=== PATIENT | male | born 1965 | race Caucasian/White ===

== ENCOUNTER 2016-08-06 11:07 | Emergency (ER) | END 2016-08-06 12:12 | disposition left against medical advice (07) | LOC: UCCORT 11:07 | DX: Z53.21 Procedure and treatment not carried out due to patient leaving prior to being seen by health care provider (principal) ==

== ENCOUNTER 2016-08-07 07:35 | Emergency (ER) | payer OTHER ==
[2016-08-07 07:48] VITALS: BP 141/82
--- NOTE | 2016-08-07 08:36 | UC ---
Skin Complaint HPI - HPI Summary HPI Summary: c/o redness and itching on R axilla area that started Tuesday. States just returned from [place] where he was sweating alot. no fevers. chills or body aches. no discharge, no abscess. +itchy more than anything else. + DM hx. last a1c was 7.5 6 mo ago and has upcoming appt. doesnt check blood sugars. - History of Current Complaint Chief Complaint: UCSkin Time Seen by Provider: 08/07/16 07:41 Stated Complaint: ARMPIT COMPLAINT - Allergy/Home Medications Allergies/Adverse Reactions: Allergies Allergy/AdvReac Type Severity Reaction Status Date / Time Erythromycin Allergy Rash Verified 08/07/16 07:42 Review of Systems Constitutional: Negative Skin: Rash Eyes: Negative ENT: Negative Respiratory: Negative Cardiovascular: Negative Gastrointestinal: Negative Genitourinary: Negative Motor: Negative Neurovascular: Negative Musculoskeletal: Negative Neurological: Negative Psychological: Negative All Other Systems Reviewed And Are Negative: Yes PMH/Surg Hx/FS Hx/Imm Hx Previously Healthy: Yes Endocrine History Of: Reports: Diabetes Cardiovascular History Of: Reports: Hypertension - Surgical History Surgical History: None - Family History Known Family History: Positive: Hypertension, Diabetes - Social History Alcohol Use: Occasionally Substance Use Type: None Smoking Status (MU): Never Smoked Tobacco Type: Cigarettes Physical Exam Triage Information Reviewed: Yes Appearance: Well-Appearing, No Pain Distress, Well-Nourished Vital Signs: Initial Vital Signs Temp 98 F 08/07/16 07:44 Pulse 55 08/07/16 07:44 Resp 18 08/07/16 07:44 BP 141/82 08/07/16 07:44 Pulse Ox 96 08/07/16 07:44 Eye Exam: Normal ENT Exam: Normal Dental Exam: Normal Neck exam: Normal Neck: Positive: Supple, Nontender, No Lymphadenopathy Respiratory: Positive: Lungs clear, Normal breath sounds Cardiovascular Exam: Normal Cardiovascular: Positive: RRR, No Murmur, Pulses Normal, Brisk Capillary Refill Abdominal Exam: Normal Musculoskeletal Exam: Normal Neurological Exam: Normal Psychological Exam: Normal Skin: Positive: rashes - b/l axilla right > left with non-blanching erythema, no d/c, no streaks, cool to touch. multiple lg skin tags b/l. not tender, no swelling, no abscess. Course/Dx - Differential Diagnoses - Skin Complaint Differential Diagnoses: Abscess, Cellulitis, Contact Dermatitis, Eczema, Tinea, Urticaria - Diagnoses Provider Diagnoses: tinea, dermatitis Discharge - Discharge Plan Condition: Stable Disposition: HOME Prescriptions: Clotrimazole/Betamethasone* [Lotrisone Cream*] 1 applic TOPICAL TID #1 tube Patient Education Materials: Dermatitis (ED) Referrals: Sherif Mccartney MD [Primary Care Provider] - 4 Days Additional Instructions: keep area dry and cool. avoid excessive sweating.
== END 2016-08-07 08:48 | disposition home or self-care (01) ==
LOC: UCCORT 07:35
DX: B35.4 Tinea corporis (principal); L30.9 Dermatitis, unspecified; Z88.1 Allergy status to other antibiotic agents
CPT/HCPCS: 99212; G0463

== ENCOUNTER 2017-06-24 09:06 | Emergency (ER) | payer OTHER ==
[2017-06-24 09:23] VITALS: BP 141/79
--- NOTE | 2017-06-24 09:30 | UC ---
Respiratory Complaint HPI - HPI Summary HPI Summary: Being keep awake at [facility] by cough--for 3 dand - History of Current Complaint Chief Complaint: UCRespiratory Stated Complaint: COUGH Time Seen by Provider: 06/24/17 09:25 Hx Obtained From: Patient Onset/Duration: Gradual Onset, Lasting Days - 3, Still Present Timing: Constant Severity Initially: Mild Severity Currently: Moderate Character: Cough: Nonproductive Aggravating Factors: Recumbent Position Alleviating Factors: Nothing Associated Signs And Symptoms: Positive: URI, Nasal Congestion - Allergies/Home Medications Allergies/Adverse Reactions: Allergies Allergy/AdvReac Type Severity Reaction Status Date / Time Erythromycin Allergy Rash Verified 06/24/17 09:23 PMH/Surg Hx/FS Hx/Imm Hx Previously Healthy: No Endocrine History: Diabetes, Dyslipidemia Cardiovascular History: Hypertension - Surgical History Surgical History: None - Family History Known Family History: Positive: Hypertension, Diabetes - Social History Occupation: Employed Full-time Lives: With Family Alcohol Use: Rare Substance Use Type: None Smoking Status (MU): Never Smoked Tobacco Review of Systems Constitutional: Negative Skin: Negative Eyes: Negative ENT: Negative Respiratory: Cough Cardiovascular: Negative Gastrointestinal: Negative Genitourinary: Negative Motor: Negative Neurovascular: Negative Musculoskeletal: Negative Neurological: Negative Psychological: Negative Is Patient Immunocompromised?: No All Other Systems Reviewed And Are Negative: Yes Physical Exam Triage Information Reviewed: Yes Appearance: No Pain Distress, Well-Nourished, Ill-Appearing - mild Vital Signs: Initial Vital Signs Temp 98.7 F 06/24/17 09:20 Pulse 91 06/24/17 09:20 Resp 18 06/24/17 09:20 BP 141/79 06/24/17 09:20 Pulse Ox 97 06/24/17 09:20 Vital Signs Reviewed: Yes Eye Exam: Normal Eyes: Positive: Conjunctiva Clear ENT Exam: Normal ENT: Positive: Normal ENT inspection, Hearing grossly normal, Pharynx normal, TMs normal, Uvula midline. Negative: Nasal congestion, Nasal drainage, Tonsillar swelling, Tonsillar exudate, Trismus, Muffled voice, Hoarse voice, Dental tenderness, Sinus tenderness Dental Exam: Normal Neck exam: Normal Neck: Positive: Supple, Nontender, No Lymphadenopathy Respiratory Exam: Normal Respiratory: Positive: Chest non-tender, Lungs clear, Normal breath sounds, No respiratory distress, No accessory muscle use Cardiovascular Exam: Normal Cardiovascular: Positive: RRR, No Murmur, Pulses Normal, Brisk Capillary Refill Musculoskeletal Exam: Normal Musculoskeletal: Positive: Strength Intact, ROM Intact, No Edema Neurological Exam: Normal Neurological: Positive: Alert, Muscle Tone Normal Psychological Exam: Normal Skin Exam: Normal UC Diagnostic Evaluation - Laboratory O2 Sat by Pulse Oximetry: 97 Respiratory Course/Dx - Course Course Of Treatment: Increase fluids, rest robitussin and codiene, albuterol follow with pcp - Differential Dx/Diagnosis Provider Diagnoses: Treated hypertension in poor control, uri Discharge - Discharge Plan Condition: Stable Disposition: HOME Prescriptions: Albuterol HFA INHALER* [Ventolin HFA Inhaler*] 2 puff INH Q4H PRN #1 mdi PRN Reason: cough Guaifenesin-Codeine [Guaiatussin AC] 5 - 10 ml PO QID PRN #120 ml MDD 40 ml PRN Reason: cough Patient Education Materials: Viral Syndrome (ED), Hypertension (ED), Cold Symptoms (ED) Referrals: Sherif Mccartney MD [Primary Care Provider] - 2 Weeks
== END 2017-06-24 09:42 | disposition home or self-care (01) ==
LOC: UCCORT 09:06
DX: I10 Essential (primary) hypertension (principal); J06.9 Acute upper respiratory infection, unspecified
CPT/HCPCS: 99211; G0463

== ENCOUNTER 2017-08-27 10:08 | Emergency (ER) | payer OTHER ==
--- NOTE | 2017-08-27 10:45 | UC ---
Respiratory Complaint HPI - HPI Summary HPI Summary: 52 y/o male presents to the urgent care c/o productive cough for the past 2 weeks. Cough is producing a green phlegm and has worsen in the past week. He feels mild SOB at times lately. He also states nasal congestion w/ yellowish nasal discharge w/ +PND. Pt had mild fever at the beginning of symptoms. Pt deneis chest pain, abdominal pain, LIRIANO, myalgias, N/V/D. He has taken OTC medications to alleviate cough w/ any improvement. - History of Current Complaint Stated Complaint: UPPER RESP Time Seen by Provider: 08/27/17 10:44 Hx Obtained From: Patient Onset/Duration: Gradual Onset, Lasting Weeks - 2 weeks, Still Present, Worse Since - past week Timing: Intermittent Episodes Severity Initially: Mild Severity Currently: Moderate Pain Intensity: 0 Pain Scale Used: 0-10 Numeric Character: Cough: Productive, Sputum Description: - green Aggravating Factors: Recumbent Position Alleviating Factors: OTC Meds Associated Signs And Symptoms: Positive: Dyspnea, Fever - at the beginning of sym[toms, Chills, URI, Nasal Congestion - Risk Factors Pulmonary Embolism Risk Factors: Negative Cardiac Risk Factors: Hypertension, Diabetes, Elevated Lipids Pseudomonas Risk Factors: Negative Tuberculosis Risk Factors: Negative - Allergies/Home Medications Allergies/Adverse Reactions: Allergies Allergy/AdvReac Type Severity Reaction Status Date / Time erythromycin base Allergy Rash Verified 08/27/17 11:04 PMH/Surg Hx/FS Hx/Imm Hx Previously Healthy: Yes Endocrine History: Diabetes, Dyslipidemia Cardiovascular History: Hypertension - Surgical History Surgical History: None - Family History Known Family History: Positive: Hypertension, Diabetes - Social History Occupation: Employed Full-time Lives: With Family Alcohol Use: Rare Substance Use Type: None Smoking Status (MU): Never Smoked Tobacco Type: Cigarettes Review of Systems Constitutional: Fever, Chills Skin: Negative Eyes: Negative ENT: Nasal Discharge, Other - +PND Respiratory: Shortness Of Breath, Cough Cardiovascular: Negative Gastrointestinal: Negative Genitourinary: Negative Motor: Negative Neurovascular: Negative Musculoskeletal: Negative Neurological: Negative Psychological: Negative Is Patient Immunocompromised?: No All Other Systems Reviewed And Are Negative: Yes Physical Exam Triage Information Reviewed: Yes - Additional Comments Vital Signs Reviewed: Yes General: well developed, well nourished male sitting in the examining table w/o any apparent distress Eyes: Positive: Conjunctiva Clear - PERRLA, EOMI, fundi grossly normal ENT: Positive: Normal ENT inspection, Hearing grossly normal, Pharynx normal, Nasal congestion - edematous and erythematous nasal mucosa, Nasal drainage - yellowish drainage, TMs normal. Negative: Tonsillar swelling, Tonsillar exudate Neck: Positive: Supple, Nontender, No Lymphadenopathy Respiratory: no orthopnea or dyspnea. Able to speak in full sentences, no retractions or accessory muscle use, no tripod position, stridor, or head bobbing. breath sound presents bilaterally, B/L posterior lung w/ scattered rhonchi and mild wheezing, no crackles or rales. Cardiovascular: Positive: RRR, No Murmur, Pulses Normal, Brisk Capillary Refill Abdomen Description: Positive: Nontender, No Organomegaly, Soft. Negative: CVA Tenderness (R), CVA Tenderness (L) Bowel Sounds: Positive: Present Musculoskeletal Exam: Normal Musculoskeletal: Positive: Strength Intact, ROM Intact, No Edema Neurological Exam: Normal Psychological Exam: Normal Skin Exam: Normal Respiratory Course/Dx - Course Course Of Treatment: 52 y/o male presents to the urgent care c/o productive cough for the past 2 weeks. Cough is producing a green phlegm and has worsen in the past week. He feels mild SOB at times lately. He also states nasal congestion w/ yellowish nasal discharge w/ +PND. Pt had mild fever at the beginning of symptoms. Pt deneis chest pain, abdominal pain, LIRIANO, myalgias, N/V/ D. He has taken OTC medications to alleviate cough w/ any improvement.Hx obtained. Pt w/ B/L posterior upper lungs w/ scattered rhonchi and mild wheezing on examination. Acute Bronchitis w/ wheezing, [id number]%. Prednisone and duoneb Treatment given to patient. Patient tolerated well treatment and lungs improved, mild wheezing only in posterior LT lung. Patient prescribed Rx Doxycycline PO, Prednisone PO, albuterol inhaler and Tessalon tabs PO as directed below. The patient was recommended to increase fluid intake. Take medications as recommended. Patient recommended to return to the clinic, or PCP or go to the nearest ER if symptoms do not improve or worsen. Patient understood and agree w/plan of care. - Differential Dx/Diagnosis Differential Diagnosis/HQI/PQRI: Asthma, Bronchitis, Exacerbation Of COPD, Influenza, Lower Resp Infection, Sinusitis Provider Diagnoses: 1- Acute bronchitis. 2-Wheezing. 3-cough Discharge - Discharge Plan Condition: Stable Disposition: HOME Prescriptions: Albuterol HFA INHALER* [Ventolin HFA Inhaler*] 1 - 2 puff INH Q6H PRN #1 mdi PRN Reason: Wheezing Benzonatate CAP* [Tessalon 100 MG CAP*] 100 mg PO TID PRN #21 cap PRN Reason: Cough DOXYcycline CAP(*) [DOXYcycline 100MG CAP(*)] 100 mg PO BID #20 cap predniSONE TAB* [Deltasone TAB*] 20 mg PO DAILY #8 tab Patient Education Materials: Acute Bronchitis (ED), Wheezing (ED) Referrals: Sherif Mccartney MD [Primary Care Provider] - 3 Days Additional Instructions: 1-Please take full course of antibiotic to avoid resistance. 2-Take Tessalon PO tabs as directed and use the albuterol inhaler to alleviate cough. Increase fluid intake, rest and eat well. 3- If symptoms do not improve or worsen or your develop SOB with fever and severe wheezing please go immediately to the ER further evaluation and treatment. 4- F/u with your PCP in 2-3 days for further management
[2017-08-27 11:06] VITALS: BP 124/67
[2017-08-27] MEDS ORDERED: predniSONE TAB* 20 MG PO ONE (11:14)
[2017-08-27] MEDS ORDERED: Albuterol/Ipratropium NEB.SOL* Albuterol 2.5 MG/Ipratropium 0.5 MG 3 ML INH ONE (11:14)
--- NOTE | 2017-08-27 11:27 | RAD ---
HISTORY: Productive cough, shortness of breath COMPARISONS: August 04, 2013 VIEWS: 4: Frontal dual-energy and lateral views of the chest. FINDINGS: CARDIOMEDIASTINAL SILHOUETTE: The cardiomediastinal silhouette is normal. ERIN: The rein are normal. PLEURA: The costophrenic angles are sharp. No pleural abnormalities are noted. LUNG PARENCHYMA: The lungs are clear. ABDOMEN: The upper abdomen is clear. There is no subphrenic gas. BONES AND SOFT TISSUES: No bone or soft tissue abnormalities are noted. OTHER: None. IMPRESSION: NO ACTIVE CARDIOPULMONARY DISEASE.
== END 2017-08-27 12:01 | disposition home or self-care (01) ==
LOC: UCCORT 10:08
DX: J20.9 Acute bronchitis, unspecified (principal); R06.2 Wheezing; Z77.22 Contact with and (suspected) exposure to environmental tobacco smoke (acute) (chronic); E11.9 Type 2 diabetes mellitus without complications; I10 Essential (primary) hypertension
CPT/HCPCS: 71046; 99212; A9270-GY; G0463; J7512